=== PATIENT | male | born 1970 | race Caucasian/White ===

== ENCOUNTER 2018-04-26 14:04 | Emergency (ER) | payer BC ==
[2018-04-26] MEDS ORDERED: Metoclopramide 10 MG/2 ML SDV IVPUSH ONE (14:42)
[2018-04-26] MEDS ORDERED: HYDROmorphone 0.5 MG/0.5 ML SYRINGE IVPUSH ONE (14:42)
[2018-04-26] MEDS ORDERED: Sodium Chloride 0.9% 1,000 ML IV SCH (14:45)
[2018-04-26] MEDS ORDERED: Ketorolac 30 MG/ML SDV IVPUSH SCH (14:45)
--- NOTE | 2018-04-26 14:47 | EDM.PDOC ---
ED HPI GENERAL MEDICAL PROBLEM - General Chief Complaint: Genitourinary Problem Stated Complaint: GROIN,ABD,TESTICLE AND LOW BACK PAIN Time Seen by Provider: 04/26/18 14:41 Source of Information: Reports: Patient History Limitations: Reports: No Limitations - History of Present Illness INITIAL COMMENTS - FREE TEXT/NARRATIVE: 47-year-old male attends the ED with pain that awoke him from sleep on Tuesday, April 24 was sleeping in his truck. Patient states he had to jump out of bed to try and get the pain to relieve as it felt like a severe cramp in his left hemiabdomen left flank rating down to his left testicle and left anterior thigh. He believes that when he stood up the pain did ease up substantially. He noticed that his urine was quite nithin dark bad day. After that the pain seemed to ease up after a few hours. 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 This morning he developed the onset again of severe left chip-abdominal pain rating down towards the left testicle. It also does radiate slightly to the left flank. She had mild nausea with no vomiting. Bowel movements normal. States no problems voiding. He has no history of kidney stones. Unsure if any members of his family had stones. Onset: Sudden Onset Date: 04/24/18 Onset Time: 05:00 Duration: Hour(s):, Intermittent, Waxing/Waning Location: Reports: Abdomen, Radiates to (Left hemiabdomen left flank rating down to the left groin rates to left flank and left groin) Quality: Reports: Ache, Pressure (Intermittent sharp stabbing colicky pain), Other Severity: Severe Improves with: Reports: None (Her pain 10 on a 10) Worsens with: Reports: None Context: Denies: Activity, Exercise, Lifting, Sick Contact, Trauma, Other Associated Symptoms: Reports: Nausea/Vomiting (Nausea without any vomiting.). 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.) Left Groin Pain Score (Numeric/FACES): 10 - Related Data Allergies Allergy/AdvReac Type Severity Reaction Status Date / Time No Known Allergies Allergy Verified 04/26/18 14:18 Home Meds: Home Meds Aspirin [Ecotrin] 81 mg PO DAILY 04/26/18 [History] Levothyroxine 0.75 mg PO DAILY 04/26/18 [History] Lisinopril 30 mg PO DAILY 04/26/18 [History] Ondansetron [Zofran ODT] 4 mg PO Q6H PRN #8 tab.dis 04/26/18 [Rx] atorvaSTATin [Lipitor] 20 mg PO DAILY 04/26/18 [History] oxyCODONE HCl/Acetaminophen [Percocet 10-325 mg Tablet] 1 - 2 each PO Q4H PRN # 16 tablet 04/26/18 [Rx] Past Medical History - Past Health History Medical/Surgical History: Denies Medical/Surgical History Cardiovascular History: Reports: High Cholesterol, Hypertension Endocrine/Metabolic History: Reports: Hypothyroidism (On supplement.) Social & Family History - Tobacco Use Smoking Status *Q: Never Smoker - Caffeine Use Caffeine Use: Reports: Soda - Recreational Drug Use Recreational Drug Use: No - Living Situation & Occupation 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 Denies: Fever, Chills, Malaise, Weakness, Fatigue, Weight Loss HEENT: Reports: No Symptoms Respiratory: Reports: No Symptoms Cardiovascular: Reports: No Symptoms Endocrine: Reports: No Symptoms GI/Abdominal: Reports: Abdominal Pain (Abdominal pain rating down to the left groin.), Decreased Appetite, Nausea. Denies: Distension, Flatus, Hematemesis, Hematochezia, Melena, Stool Incontinence, Vomiting, Other : Reports: Flank Pain (Left flank pain.), Frequency. Denies: Hematuria, Incontinence, Urgency, Urinary Retention Musculoskeletal: Reports: No Symptoms Skin: Reports: No Symptoms Neurological: Reports: No Symptoms Psychiatric: Reports: No Symptoms Hematologic/Lymphatic: Reports: No Symptoms Immunologic: Reports: No Symptoms ED EXAM, GI/ABD - Physical Exam Exam: See Below Exam Limited By: No Limitations General Appearance: Alert, WD/WN, Moderate Distress (He appears to be in obvious discomfort.) Eyes: Bilateral: Normal Appearance Respiratory/Chest: No Respiratory Distress, Lungs Clear, Normal Breath Sounds, No Accessory Muscle Use Cardiovascular: Normal Peripheral Pulses, Regular Rate, Rhythm, No Edema, No Gallop, No Murmur, Other (Blood pressure is elevated at the initial exam at 1 [id number].) GI/Abdominal Exam: Soft, Non-Tender, No Organomegaly, No Abnormal Bruit, No Mass , Abnormal Bowel Sounds (Bowel sounds are fairly quiet sent and few and far between.), Other (Abdominal girth limits ability to palpate solid organs.) (Male) Exam: Testicular Tenderness (L) (Left but no well-defined of evidence of any epididymitis or orchitis. Appears to be referred pain to the testicle.). No: Testicular Mass Back Exam: Normal Inspection, Full Range of Motion. No: CVA Tenderness (L), CVA Tenderness (R) Extremities: Normal Inspection, Normal Range of Motion, Non-Tender, No Pedal Edema Course - Vital Signs Last Recorded V/S: Last Vital Signs Temp 36.7 C 04/26/18 16:43 Pulse 80 04/26/18 16:43 Resp 16 04/26/18 16:43 BP 137/86 04/26/18 16:43 Pulse Ox 99 04/26/18 16:43 - Orders/Labs/Meds Orders: Active Orders 24 hr Category Date Time Status URINALYSIS W/MICROSCOPIC [UA W/MICROSCOPIC] [URIN] Stat Lab 04/26/18 14:43 Ordered Labs: Laboratory Tests 04/26/18 04/26/18 Range/Units 14:50 14:50 WBC 12.22 H (4.23-9.07) K/mm3 RBC 4.15 L (4.63-6.08) M/mm3 Hgb 12.3 L (13.7-17.5) gm/L Hct 35.1 L (40.1-51.0) % MCV 84.6 (79.0-92.2) fl MCH 29.6 (25.7-32.2) pg MCHC 35.0 (32.2-35.5) g/dl RDW Std Deviation 39.5 (35.1-43.9) fL Plt Count 256 (163-337) K/mm3 MPV 10.2 (9.4-12.3) fl Neutrophils % (Manual) 74 H (40-60) % Band Neutrophils % 0 (0-10) % Lymphocytes % (Manual) 20 (20-40) % Atypical Lymphs % 0 % Monocytes % (Manual) 2 (2-10) % Eosinophils % (Manual) 2 (0.8-7.0) % Basophils % (Manual) 2 H (0.2-1.2) Platelet Estimate Adequate Plt Morphology Comment Normal RBC Morph Comment Normal Sodium 136 (136-145) mEq/L Potassium 3.9 (3.5-5.1) mEq/L Chloride 104 (98-107) mEq/L Carbon Dioxide 23 (21-32) mEq/L Anion Gap 12.9 (5-15) BUN 19 H (7-18) mg/dL Creatinine 1.9 H (0.7-1.3) mg/dL Est Cr Clr Drug Dosing 50.64 mL/min Estimated GFR (MDRD) 38 (>60) mL/min BUN/Creatinine Ratio 10.0 L (14-18) Glucose 268 H (74-106) mg/dL Calcium 10.5 H (8.5-10.1) mg/dL Magnesium 1.7 L (1.8-2.4) mg/dl Total Bilirubin 0.3 (0.2-1.0) mg/dL AST 23 (15-37) U/L ALT 42 (16-63) U/L Alkaline Phosphatase 59 (46-116) U/L Total Protein 7.3 (6.4-8.2) g/dl Albumin 3.7 (3.4-5.0) g/dl Globulin 3.6 gm/dL Albumin/Globulin Ratio 1.0 (1-2) Meds: Medications Discontinued Medications Generic Name Dose Route Start Last Admin Trade Name Freq PRN Reason Stop Dose Admin Hydromorphone HCl 1 mg 04/26/18 14:42 04/26/18 15:31 Dilaudid IVPUSH 04/26/18 14:43 Not Given ONETIME ONE Sodium Chloride 1,000 mls @ 150 mls/hr 04/26/18 14:45 04/26/18 15:05 Normal Saline IV 150 mls/hr ASDIRECTED PIA Administration Ketorolac Tromethamine 30 mg 04/26/18 14:45 04/26/18 15:05 Toradol IVPUSH 30 mg ONETIME PIA Administration Metoclopramide HCl 10 mg 04/26/18 14:42 04/26/18 15:07 Reglan IVPUSH 04/26/18 14:43 10 mg ONETIME ONE Administration - Radiology Interpretation Free Text/Narrative:: 47-year-old male presents the ED with intermittent waxing and waning severe left abdominal pain rating up and towards his left flank and down to the left testicle. Certainly welcome initially from sleep on April 24. He states he had to jump out of bed because it felt like such as severe crampy type pain. After a short period of time it eased up when he was able to continue with his work on Tuesday. He did note that his urine was quite dark in color on Tuesday. On Tuesday seemed to clear up. Today the pain reoccurred and is quite bad left hemiabdomen rate down to the left groin and also the left flank. Medical history strongly suggests a kidney stone. Plan IV normal saline at 150 mils per hour. Given Toradol 30 mg IV with Reglan 10 mg IV and Dilaudid 1 mg IV for pain relief. 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 Advised that his pain is not likely going to settle with Toradol alone. CT of the abdomen and pelvis confirms a 4.8 mm stone in the proximal left ureter with moderate obstruction of the ureter above and moderate hydronephrosis of the left kidney. No other stones are identified within either renal tissue. He does have significant spondylitic defects at L5-S1 with disc space narrowing and vacuum phenomena within the L5-S1 disc space as well with mild spondylolisthesis. Labs are back.White count is elevated at 12.22 with a 74 % neutrophil count and no bands. Hemoglobin is 12.3 with hematocrit of 35.1. Sodium is 136 with a potassium of 3.9. Chloride is 104 bicarbonate 23. And a gap is normal at 12.9. BUN is minimally elevated at 19. Creatinine is elevated at 1.9. GFR is repeat reportedly only 38. Glucose is elevated to 68. Calcium was 10.5 magnesium is 1.7. One wonders if he has occult type 2 diabetes. Liver function is normal. No urinalysis is yet available 04/26/18 16:13 CT scan confirms a 4.8 mm stone in the proximal left ureter. Quentin was advised of the findings. . He is feeling improved and pain is down to 2 out of 10 at present. Be discharged to home to use Motrin 600 mg every 6 hours for pain relief. 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 Will discharge home on Zofran 4 mg sublingual every 4-6 hours needed for nausea relief as well. To screen his urine to see if the stone is passed will pass over the next 2 weeks. If stone not passed in two weeks he is to follow-up with urologist. I will send a copy of his CD ROM with him as well as a copy of the radiologist's report.. Of note no urinalysis was ever collected while he was in the ED. Departure - Departure Time of Disposition: 16:16 Disposition: Home, Self-Care 01 Condition: Fair Clinical Impression: Renal colic on left side - Discharge Information *PRESCRIPTION DRUG MONITORING PROGRAM REVIEWED*: Not Applicable *COPY OF PRESCRIPTION DRUG MONITORING REPORT IN PATIENT HAMLET: Not Applicable Prescriptions: Ondansetron [Zofran ODT] 4 mg PO Q6H PRN #8 tab.dis PRN Reason: Nausea/Vomiting oxyCODONE HCl/Acetaminophen [Percocet 10-325 mg Tablet] 1 - 2 each PO Q4H PRN # 16 tablet PRN Reason: kidney stone Instructions: Renal Colic, [id number] Referrals: PCP,None [Ordering Only Provider] - Forms: ED Department Discharge Additional Instructions: Evaluation the emergent today in regards to severe left chip-abdominal pain rating down to your left testicle and up to your left kidney. This pain came on 2 days ago but then eased up after a short period of time but returned today with a vengeance. CT scan of the abdomen and pelvis confirms a 4.8 mm stone in the upper portion of the left ureter. The ureter is about 14 inches in length and it is stuck in the upper first 5 inches. This is caused some backup of urine flow and major left kidney swollen. This is the reason for the backache and pain. The stone will continue to move down the ureter to the bladder over the next several days. However you never know when is going to start to move. She is Motrin 600 mg every 6 hours to relieve pain and inflammation. Drinking plenty of fluids may help the stone removed. I have written a prescription for stronger pain medications call Tiffanie that she can only take when you're not driving a motor vehicle but are to be used when the pain is.severe. Also Zofran 4 mg under the tongue every 4-6 hours if pain causes you to have nausea or vomit. Also suggest straining the urine returned to confirm that the stone has passed. If the stone is not passed in the next 2 weeks then I would advise seeking urology consultation to have the stone surgically removed. No stones less than 5 mm have a 90% chance of passing on their own. - My Orders Last 24 Hours: My Active Orders 04/26/18 14:43 URINALYSIS W/MICROSCOPIC [UA W/MICROSCOPIC] [URIN] Stat - Assessment/Plan Last 24 Hours: My Active Orders 04/26/18 14:43 URINALYSIS W/MICROSCOPIC [UA W/MICROSCOPIC] [URIN] Stat
--- NOTE | 2018-04-26 15:39 | CT ---
CT abdomen and pelvis Technique: Multiple axial sections were obtained from above the dome of the diaphragm inferiorly through the pubic symphysis. Intravenous contrast was not utilized. No oral contrast was utilized. Study was performed as a ureteral stone protocol. Comparison: No previous abdominal imaging. Findings: Left kidney is slightly hydronephrotic. This is due to an obstructing stone within the proximal left ureter measuring approximately 4.8 mm in size. No other abnormal calcifications are seen along the course of the ureters. No abnormal calcifications are seen within the kidneys. Visualized lung bases shows nothing acute. Liver and spleen show no focal parenchymal abnormality. Adrenal glands show no nodule. Pancreas is normal. Aorta shows no aneurysmal dilatation. No retroperitoneal adenopathy or mesenteric abnormalities are seen. Appendix is seen which is normal. No pelvic mass or adenopathy is seen. No free fluid or inflammatory change is seen. Bone window settings were reviewed which shows spondylolytic defects at L5-S1 with disc space narrowing and vacuum phenomena within the L5-S1 disc as well as mild spondylolisthesis. Impression: 1. Obstructing stone within the proximal left ureter measuring 4.8 mm causing proximal hydronephrosis. 2. Other incidental findings as noted above. Diagnostic code #3
== END 2018-04-26 16:38 | disposition home or self-care (01) ==
LOC: JD.ED 14:04
DX: N13.2 Hydronephrosis with renal and ureteral calculous obstruction (principal); E78.00 Pure hypercholesterolemia, unspecified; I10 Essential (primary) hypertension; E03.9 Hypothyroidism, unspecified; Z79.82 Long term (current) use of aspirin; Z79.899 Other long term (current) drug therapy
CPT/HCPCS: 36415; 74176; 80053; 83735; 85007; 85027; 96361; 96374; 96375; 99284; J1885; J2765; J7040